=== PATIENT | male | born 1965 | race African-American/Black ===

== ENCOUNTER 2017-03-01 12:47 | Emergency (ER) | payer OTHER ==
[~2017-03-01 12:47] MED LIST: AUGMENTIN 875-1 EACH PO; IBUPROFEN800 M1 PO; MOBIC 15MG15 MG PO; NAPROSYN500 M1 PO; TRAMADOL50 MG PO
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
[2017-03-01 13:02] LABS: ABSOLUTE BASOPHIL COUNT 0 /CUMM (0.0-0.2); ABSOLUTE EOSINOPHIL COUNT 0 /CUMM (0.0-0.7); ABSOLUTE GRANULOCYTE CT 6.8 /CUMM (1.4-6.5); ABSOLUTE MONOCYTE COUNT 0.5 /CUMM (0.10-0.60); BASOPHIL % 0.4 % (0.0-2.0); EOSINOPHIL % 0 % (0-5); GRANULOCYTE % 82.3 % (42.2-75.2); HEMATOCRIT 49.4 % (42-52); MEAN CORPUSCULAR HGB 30.3 PG (27.0-31.0); MEAN CORPUSCULAR HGB CONC 32.6 G/DL (33.0-37.0); MEAN CORPUSCULAR VOLUME 93.1 FL (80.0-94.0); MEAN PLATELET VOLUME 8.9 FL (7.4-10.4); PLATELET COUNT 194 /CUMM (130-400); RBC DISTRIBUTION WIDTH 13.3 % (11.5-14.5); RED BLOOD CELL CT 5.31 /CUMM (4.70-6.10); WHITE BLOOD CELL COUNT 8.2 /CUMM (4.8-10.8)
[2017-03-01] MEDS ORDERED: ZOFRAN ODT4 M1 SL (14:39)
[2017-03-01] MEDS ORDERED: PROTONIX40 M3 PO (14:39)
[2017-03-01 14:48] VITALS: BP 124/69
== END 2017-03-01 14:49 ==
LOC: ERH 12:47
PROVIDERS: Emergency Medicine
DX: K29.70 Gastritis, unspecified, without bleeding (principal); F10.10 Alcohol abuse, uncomplicated
CPT/HCPCS: 96361; 96374; 96375; G0480; J1885; J2405; J2550

== ENCOUNTER 2018-04-23 02:36 | Inpatient (IN) | payer OTHER ==
[~2018-04-23] VITALS: Ht 172.7 cm; Wt 67.2 kg
[~2018-04-23 02:36] MED LIST changes: +PROTONIX40 M3 PO; +ZOFRAN ODT4 M1 SL
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
[2018-04-23 18:17] VITALS: BP 153/67
[2018-04-23 18:27] VITALS: BP 153/67
--- NOTE | 2018-04-23 19:05 | Admission Certification ---
Admission Certification Certification Statement - As attending physician, I certify that at the time of - admission, based on clinical presentation, severity of - symptoms, need for further diagnostic testing and - therapeutic interventions, and risk of adverse outcomes - without in-hospital treatment, in my clinical assessment, - this patient requires an acute hospital stay for a minimum - of two nights or longer. I have also considered psychsocial - factors such as support system, advanced age, financial - issues, cognitive issues, and failed out-patient treatments, - past re-admission history, safety of patient, and lack of - compliance as applicable. Specific rationale supporting this admission is: Depression.
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
[2018-04-23 19:57] VITALS: BP 143/92
[2018-04-24] VITALS (8 sets, daily range): BP systolic 152–180; BP diastolic 80–98
--- NOTE | 2018-04-24 11:46 | PN- Att Addend ---
Attending Addendum Attending Brief Note Called by nursing staff on account of elevated blood pressure.Blood pressure was reported to be 180/98. Patient was hypertensive on admission to the inpatient psychiatric unit yesterday. EKG shows left ventricular hypertrophy. This morning he also complained of palpitations for which another EKG was repeated. Normal sinus rhythm with no ischemic changes noted. Patient seen and examined. Resting comfortably. he complained of some nausea earlier this morning. He reports he was given pancakes and boone for breakfast after this and proceeded to vomit. Symptoms has resolved since then. Denies any nausea currently. Denies any abdominal pain. Denies any diarrhea. Denies similar episodes in the past. On examination resting comfortably not in acute distress. Abdomen is flat soft and nontender with normal bowel sounds. Problems: 1. Hypertension; likely long-standing given LVH on EKG. 2. Nausea and vomiting; resolved. Plan: -Begin patient on lisinopril 20 mg orally daily. -Place patient on 2 g sodium diet. Recommend dietary counseling prior to discharge. -Patient to follow-up with his primary care provider upon discharge for continued management of his hypertension. -Currently denies any gastrointestinal complaints. Continue to monitor.
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
[2018-04-25] VITALS (9 sets, daily range): BP systolic 143–180; BP diastolic 92–98
--- NOTE | 2018-04-25 12:34 | CP SOUTH PROGRESS NOTE PSYCH ---
Psych (Inpt) Progress Note Progress Note Include the following elements, when applicable: Involvement in the active treatment of the patient with behavioral observations of the patient and the patient's response to the treatment. Review of the ongoing treatment process in the context of the treatment plan. Indication of how multi-disciplinary staff members are carrying out the treatment plan. Plans for future interventions and recommendations for revision of the treatment plan. Liaison with other physicians/providers. Progress Note: Pt notes that still not feeling well. +passing gas and having BMs. Decreased N/V over the last 24hrs. Feels poor appetite and depression overall. Mother of his child is visiting today. She is very supportive and a good friend and he is looking forward to it. Denies SI or HI. Current Medications Sig/Mary Start time Last Medication Dose Route Stop Time Status Admin Citalopram 10 MG AT BEDTIME 04/23 2100 AC 04/24 Hydrobromide PO 2259 Folic Acid 1 MG DAILY 04/24 1330 AC 04/25 PO 04/26 0901 0824 Gabapentin 200 MG Q2 HRS NEEDED PRN 04/23 1730 AC PO Ibuprofen 400 MG Q6P PRN 04/23 2000 AC 04/24 PO 0606 Lisinopril 20 MG DAILY 04/24 0904 AC 04/25 PO 0825 Lorazepam 2 MG Q2P PRN 04/24 1330 AC PO Lorazepam 1 MG Q2P PRN 04/24 1330 AC 04/24 PO 2009 Multivitamins 1 TAB DAILY 04/24 1330 AC 04/25 PO 0825 Omeprazole 40 MG DAILY AC 04/24 1323 AC 04/25 PO 0621 Ondansetron HCl 4 MG Q6P PRN 04/24 1230 AC 04/24 PO 1225 Thiamine HCl 100 MG DAILY 04/24 1330 AC 04/25 PO 04/26 0901 0825 Trazodone HCl 50 MG AT BEDTIME NEED.. 04/23 1730 AC 04/25 PO 0324 Laboratory Tests 04/23 04/23 0420 0334 Chemistry Sodium (137 - 145 mmol/L) 137 Potassium (3.5 - 5.1 mmol/L) 4.2 Chloride (98 - 107 mmol/L) 96 L Carbon Dioxide (22 - 30 mmol/L) 29 Anion Gap (5 - 16) 12 BUN (9 - 20 mg/dL) 11 Creatinine (0.7 - 1.2 mg/dL) 0.9 Estimated GFR (>60 ml/min) > 60 BUN/Creatinine Ratio (7 - 25 %) 12.2 Glucose (65 - 99 mg/dL) 111 H Calcium (8.4 - 10.2 mg/dL) 9.3 Total Bilirubin (0.2 - 1.3 mg/dL) 0.4 AST (17 - 59 U/L) 35 ALT (21 - 72 U/L) 41 Alkaline Phosphatase (< 127 U/L) 121 Troponin I (<0.11 ng/ml) < 0.01 Total Protein (6.3 - 8.2 g/dL) 7.8 Albumin (3.5 - 5.0 g/dL) 3.9 Globulin (1.9 - 4.2 gm/dL) 3.9 Albumin/Globulin Ratio (1.1 - 2.2 %) 1.0 L TSH &T3 &Free T4 Intrp (0.27 - 4.20 uIU/mL) 0.952 Toxicology Urine Opiates Screen (>2000 NG/ML) 769.00 Methadone Screen (>300 NG/ML) < 40 Barbiturate Screen (>200 NG/ML) < 60 Ur Phencyclidine Scrn (>25 NG/ML) < 6.00 Amphetamines Screen (>1000 NG/ML) < 100 U Benzodiazepines Scrn (>200 NG/ML) < 85 Urine Cocaine Screen (>300 NG/ML) 401 H Urine Cannabis Screen (>50 NG/ML) > 80.00 H Serum Alcohol (<10 MG/DL) < 10.0 Urines Urine Color (YEL,AMB,STR) YEL Urine Clarity (CLEAR) CLEAR Urine pH (5.0 - 8.0) 6.5 Ur Specific Alder (1.001 - 1.035) 1.020 Urine Protein (NEG,<30 MG/DL) 100 H Urine Ketones (NEG) NEG Urine Nitrite (NEG) NEG Urine Bilirubin (NEG) NEG Urine Urobilinogen (0.1 - 1.0 EU/dl) 0.2 Ur Leukocyte Esterase (NEG) NEG Ur Microscopic SEDIMENT EXAMINED Urine WBC (0 - 2 /HPF) RARE Urine Bacteria (NEG/NONE) RARE H Urine Hemoglobin (NEG) NEG Urine Glucose (N MG/DL) NEG Vital Signs Date Time Temp Pulse Resp B/P B/P Pulse O2 O2 Flow FiO2 Mean Ox Delivery Rate 04/25 1228 88 148/92 04/25 1219 88 148/92 04/25 0825 96 164/98 04/25 0757 96.7 96 164/98 04/25 0756 98.8 96 164/98 04/24 2254 93 16 152/97 04/24 2032 97.0 84 172/80 04/24 2025 97.0 84 172/80 04/24 1616 60 160/88 04/24 1613 60 160/88 MSE General appearance: good hygiene and grooming; Attitude: cooperative; Eye contact: appropriate; Movement: no psychomotor agitation or slowing; Speech: nl fluency, nl rate/rhythm, nl volume, nl prosody; Mood: "not good" Affect: irritable, flat, appropriate, constricted, non-labile, congruent; Thought process: linear and goal-directed; Thought content: denied SI or HI, no paranoid ideation; Perception: denied hallucinations- auditory, visual, does not appear to be responding to internal stimuli; I/J: limited -Continue current medication regimen except add mirtazapine -Encourage integration into the milieu
[2018-04-26] VITALS (8 sets, daily range): BP systolic 143–159; BP diastolic 74–99
--- NOTE | 2018-04-26 04:59 | Event Note ---
Event Note Event Note: This patient's BP was elevated (140-150's, then at 180/92) despite being on lisinopril 20 mg. I have increased lisinopril to 30 mg today. BP needs to be monitored. CIWA's are low. He needs outpatient follow up with PCP with regards to management of hypertension.
[2018-04-26 08:10] LABS: ABSOLUTE BASOPHIL COUNT 0 /CUMM (0.0-0.2); ABSOLUTE EOSINOPHIL COUNT 0 /CUMM (0.0-0.7); ABSOLUTE GRANULOCYTE CT 6.8 /CUMM (1.4-6.5); ABSOLUTE LYMPH COUNT 2.2 /CUMM (1.2-3.4); ABSOLUTE MONOCYTE COUNT 0.9 /CUMM (0.10-0.60); BASOPHIL % 0.3 % (0.0-2.0); EOSINOPHIL % 0.4 % (0-5); GRANULOCYTE % 67.9 % (42.2-75.2); HEMATOCRIT 49.5 % (42-52); MEAN CORPUSCULAR HGB 30.9 PG (27.0-31.0); MEAN CORPUSCULAR HGB CONC 33.3 G/DL (33.0-37.0); MEAN CORPUSCULAR VOLUME 92.8 FL (80.0-94.0); MEAN PLATELET VOLUME 9.8 FL (7.4-10.4); PLATELET COUNT 240 /CUMM (130-400); RBC DISTRIBUTION WIDTH 13.5 % (11.5-14.5); RED BLOOD CELL CT 5.34 /CUMM (4.70-6.10)
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
--- NOTE | 2018-04-26 17:37 | SOCIAL WORKER PROG NOTE PSYCH ---
Social Work Progress Note Progress Note [facility] concurrent review entered: Member Name Member ID Member Subscriber Name Subscriber ID NIKKI FULLER [id number] 1965 NIKKI FULLER [id number] Pended Authorization # Client Authorization # Type of Request [id number] CONCURRENT Date of Admission/ Start of Services Requested From Submission Date 04/23/2018 04/26/2018 04/26/2018 Level of Service Type of Service Level of Care Type of Care INPATIENT/OC Mental Health Inpatient Inpatient Hospital - Inpatient [facility]
--- NOTE | 2018-04-26 18:10 | SOCIAL WORKER PROG NOTE PSYCH ---
Social Work Progress Note Progress Note This insurance writer met with patient. He reported that his increased depression and SI led to current admission. Patient reported that he has been experiencing decreased energy (for the past three months), decreased appetite, difficulty sleeping and SI (with thoughts to hang himself or OD on Heroin) and not wanting to go to work. He denied HI/AH/VH. He reported past VH of seeing the devil when under the influence of Crack. Patient reported Crack use between ages [age]. Patient stated that he has been drinking alcohol, 5-6 shots on the weekends. He denied any consequences and was unable to identify how long he has had this pattern of use. He reported alcohol use beginning at age 13. Patient reported daily MJ use and has not intention of abstaining from the MJ use. Patient stated that he has been in treatment at [facility] and [facility] in the past, but states that he is not allowed to return. He was unable to identify why this is so, and refused to sign an HERMANN for either program. He was unable to identify any other providers in the past and stated that he was not in treatment prior to [facility] admission. Patient was agreeable to a family meeting with his sister, with whom he lives. He denied any current legal or DCF involvement.
--- NOTE | 2018-04-26 18:27 | SOCIAL WORKER PROG NOTE PSYCH ---
Social Work Progress Note Progress Note Patient spoke with [facility] [employer] today to activate/apply for [employer] insurance. [phone] Application ID: [id number] This information was provided to Meredith with the Business office (ext. [phone])
[2018-04-27 08:14] VITALS: BP 153/90
[2018-04-27 08:15] VITALS: BP 153/90
[2018-04-27 12:36] VITALS: BP 150/94
[2018-04-27 16:39] VITALS: BP 122/65
--- NOTE | 2018-04-27 16:47 | CP SOUTH PROGRESS NOTE PSYCH ---
Psych (Inpt) Progress Note Progress Note Include the following elements, when applicable: Involvement in the active treatment of the patient with behavioral observations of the patient and the patient's response to the treatment. Review of the ongoing treatment process in the context of the treatment plan. Indication of how multi-disciplinary staff members are carrying out the treatment plan. Plans for future interventions and recommendations for revision of the treatment plan. Liaison with other physicians/providers. Progress Note: Case and treatment plan discussed in team meeting. Staff reports that the patient is denying suicidal ideation. Had an elevated pulse of 108 and received Ativan. Wants to go back to work. Does not want to go to AA meeting. Blood pressure was elevated at 150/93. No recurrence of vomiting. Patient seen at 11:38 AM with medical student. Patient was asleep in bed but got up and met with us in office. Feels okay but reports he still feels tired. Reports he slept poorly last night. I advised him to avoid daytime napping to work on his sleep cycle reversal. Affect is calm, flat with low energy. Reports appetite is improving. Denies vomiting. Reports mood is good but rates sad mood 10/10, indicating that he feels ready to cry in a few minutes. Rates anxiety 7/10. Feels hopeless, helpless and worthless. Denies feeling guilty. Denies active suicidal ideation. Reports passive suicidal ideation. Gives a safety promise for here. Denies homicidal ideation. Denies auditory and visual hallucinations and paranoid ideation. Reports he wants to feel better and get back to work. I informed the patient we will now switch SSRI from Celexa to Lexapro (Lexapro may have fewer side-effects) and we will now discontinue Remeron (which can cause sedation). IMPRESSION: Slow progress. Continue present treatment plan. Family meeting is scheduled with sister for tomorrow at 10:30 AM. Anticipate likely discharge later this week to [facility], as the patient refuses recommendation for an IOP.
--- NOTE | 2018-04-27 18:26 | SOCIAL WORKER PROG NOTE PSYCH ---
Social Work Progress Note Progress Note This account underwriter met with patient. He reported feeling depressed. He denied SI/HI/ AH/VH. Patient maintained that he did not want to go to [facility] and wanted to return to work. He also stated that he is not willing to go to [facility] or [facility]. This account underwriter and patient discussed the importance of continuing with treatment after discharge, and patient was agreeable to medication management and possibly an outpatient group. He insisted on a referral to OPS as it is close to work. Patient appeared to minimize his substance use, precontemplative. He was agreeable to a family meeting with his sister, Teri. She was contacted by phone ([phone]) and a meeting is scheduled for tomorrow, 04/28/18, at 10: 30am. Patient also requested a referral to [facility] for a primary care provider.
[2018-04-27 20:11] VITALS: BP 148/76
[2018-04-28 08:30] VITALS: BP 133/91
--- NOTE | 2018-04-28 10:39 | CP SOUTH PROGRESS NOTE PSYCH ---
Psych (Inpt) Progress Note Progress Note Include the following elements, when applicable: Involvement in the active treatment of the patient with behavioral observations of the patient and the patient's response to the treatment. Review of the ongoing treatment process in the context of the treatment plan. Indication of how multi-disciplinary staff members are carrying out the treatment plan. Plans for future interventions and recommendations for revision of the treatment plan. Liaison with other physicians/providers. Progress Note: Case and treatment plan discussed in team meeting. Staff reports that the patient is denying suicidal ideation. Laying low. Eating a lot. Not social. Slept well. Patient seen at 10:06 AM. He was asleep in his room but got up and met with me in office. Reports he is drowsy because he took some medication. Reports he slept well last night. Affect is calm and flat. Mood is down/depressed at 10/ 10. Rates anxiety 10/10. Feels hopeless, helpless and worthless. Denies feeling guilty. Denies active and passive suicidal ideation. Denies homicidal ideation. Denies auditory and visual hallucinations and paranoid ideation. Reports eating well. Energy is low. Patient reports having a chronic pinched nerve in his back that is not causing pain but feels like a bubble. I advised him to follow-up with a PCP after discharge. Family meeting is scheduled with sister for 10:30 AM. IMPRESSION: Slow progress. Continue present treatment. Anticipate likely discharge tomorrow to home and sister with referral for outpatient treatment at [facility].
[2018-04-28 12:14] VITALS: BP 140/83
[2018-04-28 15:57] VITALS: BP 136/78
--- NOTE | 2018-04-28 17:48 | SOCIAL WORKER PROG NOTE PSYCH ---
Social Work Progress Note Progress Note Dr. Melo and this financial underwriter met with the patient and his sister for a family meeting at 10:30am. Patient's sister, Teri, stated that the patient had not been demonstrating any change in mood, however, looking back, she acknowledges that there was some uncharacteristic isolation. Teri was not aware of the longstanding SI, however, reported that the mother of the patient's children had commented on patient reporting SI. Patient's sister stated that the patient's current presentation is typical - at baseline. She stated that the patient will be living with her upon discharge. Discharge plans were discussed, including treatment options - OPS or IOP. Dr. Melo, this financial underwriter and Teri encouraged the patient to go to IOP. He was agreeable to meeting with Sonali Clifton LPC to discuss IOP. Dr. Melo addressed medication questions and concerns. Patient denied SI/HI/AH/VH. He reported better sleep and improved mood. He stated that he does not have access to weapons or have any weapons in the home ( this was confirmed by Teri). Patient identified a safety plan to use when he discharges in which he would contact his sister. They were also informed that he would be provided with crisis numbers and warm line numbers. Patient accepted the following appointments: -Dr. Campo, [facility], 05/12/18 at 1:15pm - OPS: intake and med eval, 05/04/18 at 12:45pm with Dr. Zamora (the OPS appointment will be cancelled if patient chooses to go to IOP after meeting with Cely Clifton) Cely Clifton LPC contacted me after meeting with patient. She stated that he has no intention to stop using MJ. Patient is not appropriate for IOP and will keep the OPS appointment. Cely Clifton LPC recommended the outpatient substance abuse group.
[2018-04-28 19:34] VITALS: BP 155/87
[2018-04-29 07:41] VITALS: BP 160/89
[2018-04-29 09:17] VITALS: BP 160/89
[2018-04-29] MEDS ORDERED: OMEPRAZOLE40 M1 PO (11:55)
[2018-04-29] MEDS ORDERED: ONE DAILY MULT1 EAC2 PO (11:55)
[2018-04-29] MEDS ORDERED: LISINOPRIL30 M1 PO (11:55)
[2018-04-29] MEDS ORDERED: LEXAPRO10 M1 PO (11:55)
[2018-04-29] MEDS ORDERED: NICORETTE2 M2 PO (11:57)
--- NOTE | 2018-04-29 12:09 | Patient Discharge Instructions ---
Psych Discharge Inst General Discharge Information Reason for Admission: Worsening depression. Low energy/motivation. Stomach problems. Psy Discharge Primary Diag+ Major depression, single, severe Psy Discharge Secondary Diag+ Cocaine use disorder Cannabis use disorder Alcohol use disorder Hypertension Nausea/vomiting Summary Tests/Major Procedures Lab ALT 50 U/L 04/26/18 0905 AST 29 U/L 04/26/18 0905 Albumin/Globulin Ratio 1.0 % L 04/23/18 0334 Amylase 87 U/L 04/26/18 0905 BUN 11 mg/dL 04/23/18 0334 Calcium 9.3 mg/dL 04/23/18 0334 Carbon Dioxide 29 mmol/L 04/23/18 0334 Chloride 96 mmol/L L 04/23/18 0334 Cholesterol 153 MG/DL 04/26/18 0905 Cholesterol/HDL Ratio 1 % 04/26/18 0905 Creatinine 0.9 mg/dL 04/23/18 0334 Estimated GFR > 60 ml/min 04/23/18 0334 Ferritin 448.0 ng/mL 04/26/18 0905 Glucose 111 mg/dL H 04/23/18 0334 HDL Cholesterol 103 mg/dL H 04/26/18 0905 Hemoglobin A1c 5.5 % 04/26/18 0640 Iron 120 ug/dL 04/26/18 0905 LDL Cholesterol, Calc 35 mg/dL L 04/26/18 0905 Lipase 176 U/L 04/26/18 0905 Magnesium 1.8 mg/dL 04/26/18 0905 Potassium 4.2 mmol/L 04/23/18 0334 Sodium 137 mmol/L 04/23/18 0334 TIBC 338 ug/dL 04/26/18 0905 TSH &T3 &Free T4 Intrp 0.952 uIU/mL 04/23/18 0334 Triglycerides 78 mg/dL 04/26/18 0905 Vitamin B12 > 1000 pg/mL H 04/26/18 0905 Absolute Granulocytes 6.8 /CUMM H 04/26/18 0640 Absolute Monocytes 0.9 /CUMM H 04/26/18 0640 Hct 49.5 % 04/26/18 0640 Hgb 16.5 G/DL 04/26/18 0640 Plt Count 240 /CUMM 04/26/18 0640 WBC 10.0 /CUMM 04/26/18 0640 Hep B Core IgM Ab Conf NONREACTIVE 04/26/18 0905 Hep Bs Antigen NONREACTIVE 04/26/18 0905 Hepatitis A IgM Ab NONREACTIVE 04/26/18 0905 Hepatitis C Antibody NONREACTIVE 04/26/18 0905 Serum Alcohol < 10.0 MG/DL 04/23/18 0334 Urine Cannabis Screen > 80.00 NG/ML H 04/23/18 0420 Urine Cocaine Screen 401 NG/ML H 04/23/18 0420 Urine Opiates Screen 769.00 NG/ML 04/23/18 0420 Ur Epithelial Cells RARE 04/22/18 1601 Urine Bacteria RARE H 04/23/18 0420 Urine Protein 100 MG/DL H 04/23/18 0420 SERVICE DATE: 04/22/18 EXAM TYPE: RAD - XRY-CHEST XRAY, TWO VIEWS EXAMINATION: XR CHEST CLINICAL INFORMATION: Dizziness, dyspnea. COMPARISON: None TECHNIQUE: 2 views of the chest were obtained. FINDINGS: The cardiomediastinal silhouette appears normal. The lungs appear clear. No consolidation, pulmonary edema, pleural effusion, or pneumothorax. Several irregular small radiodensities project over the right upper hemithorax, and on the lateral view are seen both anteriorly and posteriorly. There are mild multilevel degenerative changes of the spine without acute osseous abnormality. IMPRESSION: No acute abnormality. Small irregular radiodense foreign bodies in the right upper hemithorax. Correlation with history is suggested. EKG 04/24/18 showed sinus rhythm @ 62, consider LVH, no significant change since previous tracing, abnormal EKG, QT 380, QTc 386. Studies Pending at DC: None. Patient Instructions Contact Information Your Psychiatrist on [facility] was Dann Melo MD * If you are experiencing an emergency related to this hospitalization, please call [phone] to contact the treating psychiatrist or the psychiatrist-on- call. * To Request a copy of your medical records, please contact the Medical Records Department at [phone]. * To request results of studies pending at the time of discharge, please call [phone]. * Continue your Medications until directed to stop by your Healthcare provider. General Medication Information Please continue to take your new medications and your continued home medications , unless otherwise indicated on your discharge medication list, or unless directed by your MD or MARKET RESEARCH EXECUTIVE to stop them. Special Instructions Diet Regular Activity Normal Other Inst/Recommendations See PCP about BP, stomach issues,labs.Stay clean and sober. - Tobacco Use Treatment Offered Post DC Medications Offered: Script Given-See Med List Post DC Tobacco Treatment Plan: [facility] Program Appt Date: 05/12/18 Program Appt Time: 1600 - EtOH/Drug Use D/O Treatment Offered Post DC Medications Offered: Med Not Indicated for D/O Post DC EtOH/SubAbuse TX Plan: Other SubAbuse/Dual Pgm ([facility]) Program Appt Date: 05/04/18 Program Appt Time: 1245 Metabolic Screening ([x]) Not Applicable, patient not on a neuroleptic. OR () Patient on a neuroleptic(s) . Enter below results for Hemoglobin A1C, and lipid panel if obtained during the last 365 days. BMI: 22.500 Blood Pressure: 160/89 Laboratory Results From [facility] EHR (If applicable): Advance Directives Does the Patient have Medical Advance Directives No/Refused further info Does Pt have Psychiatric Advance Directives? No/Refused further info Does Patient have a Designated Surrogate Decision Maker: No Information About Psychiatric Advance Directives Provided? Yes Discharge Plan Post Hospital Treatment Plan: Returning to home and sister.
[2018-04-29] MEDS ORDERED: ONDANSETRON ODT4 M1 PO (12:18)
--- NOTE | 2018-04-29 15:57 | CP SOUTH PROGRESS NOTE PSYCH ---
Psych (Inpt) Progress Note Progress Note Include the following elements, when applicable: Involvement in the active treatment of the patient with behavioral observations of the patient and the patient's response to the treatment. Review of the ongoing treatment process in the context of the treatment plan. Indication of how multi-disciplinary staff members are carrying out the treatment plan. Plans for future interventions and recommendations for revision of the treatment plan. Liaison with other physicians/providers. Progress Note: Case and treatment plan discussed in team meeting. Staff reports that the patient has constricted affect. Looking forward to discharge. Looking forward to returning to work. Not interested in stopping marijuana, so he is not a candidate for our IOP. Has an appointment with Dr. Zamora on 05/04/18. Patient seen at 12:10 p.m. was social work associate, Martha. Reports he vomited this morning. Appears physically uncomfortable and states that he has hunger pains. He appears anxious and is rocking in his chair. Reports mood is good. Rates sad mood and anxiety both 0/10. Denies feeling hopeless, helpless, worthless or guilty. Denies active and passive suicidal ideation. Denies homicidal ideation. Denies auditory and visual hallucinations and paranoid ideation. States he did not sleep at all last night because of anxiety about leaving. States he has no appetite. Energy is low. Feels ready and safe for discharge. Refusing IOP recommendation. He is being referred to [facility]PS and to [facility] for primary care. He is also being referred to a gastroenterology appointment. IMPRESSION: Condition improved. Okay for discharge today to home and sister with follow-up as above.
--- NOTE | 2018-04-29 17:23 | SOCIAL WORKER PROG NOTE PSYCH ---
Social Work Progress Note Progress Note Dr. Melo and this caption writer met with the patient. He described his mood as "good " however complained of stomach pain. He stated that his sister will be bringing him to a athletic turf worker after discharging from [facility] today. Patient denied SI/HI/AH/VH and stated that he felt safe leaving the hospital today. Patient expressed some anxiety about wanting to return to work, which affected his ability to sleep last night. As he refused IOP, patient was agreeable to attending the appointment with OPS for medication management and also to discuss outpatient groups. Patient also accepted a primary care appointment with [facility]. (See appointments below) - OPS 05/04/18 at 12:45pm with Dr. Zamora -[facility] Dr. Campo 05/11/18 at 1:15pm (patient and this caption writer contacted Dr. Campo' office to inquire about a sooner appointment. They offered one on 05/10/18, however, patient opted to keep the appt at 1:15pm Patient was provided with an appointment with Dr. Oh (gastroenterology) on at 11:45am. He stated that his sister will be taking him to an appointment with a athletic turf worker this afternoon and did not need the appointment with Dr. Oh, however, accepted the information. Patient did not want to sign an HERMANN for Dr. Oh and did not want any records sent to Dr. Oh from this current admission. Faxed Referral(s) 1 Referred To: Dr. Campo Transition of Care Documents sent: Health Summary Faxed to: Dr. Campo Fax #: [phone] Faxed by: Robb Miller LCSW Date faxed: 04/29/18 Time Faxed: [phone] Faxed Referral(s) 2 Referred To: [facility] Transition of Care Documents sent: Health Summary Faxed to: OPS Fax #: [phone] Faxed by: Robb Miller LCSW Date faxed: 04/29/18 Time Faxed: [phone]
--- NOTE | 2018-04-30 17:13 | DISCHARGE SUMMARY REPORT-PSYCH ---
Visit Information Visit Dates/Diagnosis' Admission Date: 04/23/18 Discharge Date: 04/29/18 Reason for Admission: Worsening depression. Low energy/motivation. Stomach problems. Psy Discharge Primary Diag: Major depression, single, severe Psy Discharge Secondary Diag: Cocaine use disorder Cannabis use disorder Alcohol use disorder Hypertension Nausea/vomiting Hospital Course Significant Lab Findings: Lab ALT 50 U/L 04/26/18 0905 AST 29 U/L 04/26/18 0905 Albumin/Globulin Ratio 1.0 % L 04/23/18 0334 Amylase 87 U/L 04/26/18 0905 BUN 11 mg/dL 04/23/18 0334 Calcium 9.3 mg/dL 04/23/18 0334 Carbon Dioxide 29 mmol/L 04/23/18 0334 Chloride 96 mmol/L L 04/23/18 0334 Cholesterol 153 MG/DL 04/26/18 0905 Cholesterol/HDL Ratio 1 % 04/26/18 0905 Creatinine 0.9 mg/dL 04/23/18 0334 Estimated GFR > 60 ml/min 04/23/18 0334 Ferritin 448.0 ng/mL 04/26/18 0905 Glucose 111 mg/dL H 04/23/18 0334 HDL Cholesterol 103 mg/dL H 04/26/18 0905 Hemoglobin A1c 5.5 % 04/26/18 0640 Iron 120 ug/dL 04/26/18 0905 LDL Cholesterol, Calc 35 mg/dL L 04/26/18 0905 Lipase 176 U/L 04/26/18 0905 Magnesium 1.8 mg/dL 04/26/18 0905 Potassium 4.2 mmol/L 04/23/18 0334 Sodium 137 mmol/L 04/23/18 0334 TIBC 338 ug/dL 04/26/18 0905 TSH &T3 &Free T4 Intrp 0.952 uIU/mL 04/23/18 0334 Triglycerides 78 mg/dL 04/26/18 0905 Vitamin B12 > 1000 pg/mL H 04/26/18 0905 Absolute Granulocytes 6.8 /CUMM H 04/26/18 0640 Absolute Monocytes 0.9 /CUMM H 04/26/18 0640 Hct 49.5 % 04/26/18 0640 Hgb 16.5 G/DL 04/26/18 0640 Plt Count 240 /CUMM 04/26/18 0640 WBC 10.0 /CUMM 04/26/18 0640 Hep B Core IgM Ab Conf NONREACTIVE 04/26/18 0905 Hep Bs Antigen NONREACTIVE 04/26/18 0905 Hepatitis A IgM Ab NONREACTIVE 04/26/18 0905 Hepatitis C Antibody NONREACTIVE 04/26/18 0905 Serum Alcohol < 10.0 MG/DL 04/23/18 0334 Urine Cannabis Screen > 80.00 NG/ML H 04/23/18 0420 Urine Cocaine Screen 401 NG/ML H 04/23/18 0420 Urine Opiates Screen 769.00 NG/ML 04/23/18 0420 Ur Epithelial Cells RARE 04/22/18 1601 Urine Bacteria RARE H 04/23/18 0420 Urine Protein 100 MG/DL H 04/23/18 0420 SERVICE DATE: 04/22/18 EXAM TYPE: RAD - XRY-CHEST XRAY, TWO VIEWS EXAMINATION: XR CHEST CLINICAL INFORMATION: Dizziness, dyspnea. COMPARISON: None TECHNIQUE: 2 views of the chest were obtained. FINDINGS: The cardiomediastinal silhouette appears normal. The lungs appear clear. No consolidation, pulmonary edema, pleural effusion, or pneumothorax. Several irregular small radiodensities project over the right upper hemithorax, and on the lateral view are seen both anteriorly and posteriorly. There are mild multilevel degenerative changes of the spine without acute osseous abnormality. IMPRESSION: No acute abnormality. Small irregular radiodense foreign bodies in the right upper hemithorax. Correlation with history is suggested. EKG 04/24/18 showed sinus rhythm @ 62, consider LVH, no significant change since previous tracing, abnormal EKG, QT 380, QTc 386. Course Complications: None. Consultations: The patient was seen by Dr. Francisco Melendez on 04/23/18 for admission H&P. Dr. Melendez noted on 04/23/18: "Assessment: 52 yo M with h/o polysubstance abuse, current smoker, alcohol use, is admitted to Inpatient Psychiatry for management of depression and suicidal ideation. - Continue management of depression as per Psych team. - Smoking cessation counseling, nicotine patch. - BP remains elevated and EKG shows signs of LVH with early repolarization pattern. We will monitor his BP for now, and if need be will consider adding ACEI if BP remains persistently elevated. Would avoid beta blockers given his current use of cocaine. Troponin was negative on initial eval. - His weight loss seems to be related to loss of appetite, depression. He would need referral to PCP upon discharge and age-appropriate screening with colonoscopy. DVT ppx low risk, early ambulation." Dr. Barboza saw the patient on 04/24/18 and noted:Problems: 1. Hypertension; likely long-standing given LVH on EKG. 2. Nausea and vomiting; resolved. Plan: -Begin patient on lisinopril 20 mg orally daily. -Place patient on 2 g sodium diet. Recommend dietary counseling prior to discharge. -Patient to follow-up with his primary care provider upon discharge for continued management of his hypertension. -Currently denies any gastrointestinal complaints. Continue to monitor." Dr. Melendez saw the patient on 04/26/18 and noted: "This patient's BP was elevated (140-150's, then at 180/92) despite being on lisinopril 20 mg. I have increased lisinopril to 30 mg today. BP needs to be monitored. CIWA's are low. He needs outpatient follow up with PCP with regards to management of hypertension." Allergies: Coded Allergies: No Known Allergies (04/23/18) Hospital Course/TX Response: The patient was monitored on the unit for safety and mood disorder. He participated in multi-modal treatments on the unit. He intermittently complained of low energy, poor sleep and abdominal discomfort. He was treated with Lexapro for depression. Mood and affect have improved modestly. Suicidal ideation has remitted. Physical discomfort persists and the patient should follow up with PCP and dam operator. Progress note from date of discharge, 04/29/18: "Case and treatment plan discussed in team meeting. Staff reports that the patient has constricted affect. Looking forward to discharge. Looking forward to returning to work. Not interested in stopping marijuana, so he is not a candidate for our IOP. Has an appointment with Dr. Zamora on 05/04/18. Patient seen at 12:10 p.m. was social service technicianMartha. Reports he vomited this morning. Appears physically uncomfortable and states that he has hunger pains. He appears anxious and is rocking in his chair. Reports mood is good. Rates sad mood and anxiety both 0/10. Denies feeling hopeless, helpless, worthless or guilty. Denies active and passive suicidal ideation. Denies homicidal ideation. Denies auditory and visual hallucinations and paranoid ideation. States he did not sleep at all last night because of anxiety about leaving. States he has no appetite. Energy is low. Feels ready and safe for discharge. Refusing IOP recommendation. He is being referred to [facility]PS and to [facility] for primary care. He is also being referred to a gastroenterology appointment. IMPRESSION: Condition improved. Okay for discharge today to home and sister with follow-up as above." Discharge HBIPS - Tobacco Use Treatment Offered Post DC Medications Offered: Script Given-See Med List Post DC Tobacco Treatment Plan: [facility] Program Appt Date: 05/12/18 Program Appt Time: 1600 - EtOH/Drug Use D/O Treatment Offered Post DC Medications Offered: Med Not Indicated for D/O Post DC EtOH/SubAbuse TX Plan: [facility] SubAbuse/Dual IOP ([facility] Dr. Zamora) Program Appt Date: 05/04/18 Program Appt Time: 1245 Metabolic Screening - Screen if on a Neuroleptic Medication - Metabolic screening should include: - Blood Pressure, BMI, Glucose or Hgb A1c, & a - Lipid profile from within the past 365 days. Metabolic Screening ([x]) Not Applicable, patient not on a neuroleptic. OR () Patient on a neuroleptic(s) . Enter below results for Hemoglobin A1C, and lipid panel if obtained during the last 365 days. BMI: 22.500 Blood Pressure: 160/89 Laboratory Results From [facility] EHR (If applicable): Discharge Instructions General Discharge Information Multiple Neuroleptics: ([x]) Not Applicable OR Document below three failed attempts at monotherapy, or a plan to taper to monotherapy, or augmentation of Clozapine. () Discharge Diet Regular Discharge Activity Normal DC Disposition: Returning to home and sister. Referrals Ordered Referrals Outpatient Psych - Substance 05/04/18 [address] [place], [place] [id number] [facility] [address], [place] [phone] 05/04/18, at 12:45pm with Dr. Zamora Provider Referral 05/11/18 For Groups: [facility] Multiple Locations Dr. Jahaira Leger Faculty Physician [address] [place], [place] [phone] Appointment: Friday, May 11, 2018, at 1:15pm OUTPATIENT PSYCH - SUBSTANCE 05/12/18 [address] [facility] [place] [address] Smoking Cessation Group [address], [place] [phone] Group meets every other Thursday at 4pm Next group: 05/12/18, at 4pm Prescriptions Start taking the following new medications: Escitalopram Oxalate (Lexapro) 10 MG TABLET 10 Tablet ORAL DAILY @8 AM Qty = 14 No Refills Comments: Last Taken:04/29/18 Time:0917 Multivitamin (One Daily Multivitamin) 1 EACH TABLET 1 Tablet ORAL DAILY Qty = 14 No Refills Comments: Last Taken:04/29/18 Time:0917 Ondansetron (Ondansetron Odt) 4 MG TAB.RAPDIS 1 Tablet ORAL EVERY SIX HOURS NEEDED as needed for NAUSEA/VOMITING Qty = 28 No Refills Comments: Last Taken:04/29/18 Time:0605 Lisinopril (Lisinopril) 30 MG TABLET 1 Tablet ORAL DAILY Qty = 14 No Refills Comments: Last Taken:04/29/18 Time:0917 Omeprazole (Omeprazole) 40 MG CAPSULE.DR 1 Capsule ORAL DAILY Qty = 14 No Refills Comments: Last Taken:04/29/18 Time:0803 Nicotine Polacrilex (Nicorette) 2 MG GUM 1 Gum ORAL Q2H as needed for nicotine craving Qty = 100 No Refills Comments: Last Taken:04/29/18 Time:NOT TAKEN IN HOSPITAL Other Inst/Recommendations See PCP about BP, stomach issues,labs.Stay clean and sober. Studies Pending at Discharge None. Copies To: Jahaira POLANCO,Ulices Wallace; Ari POLANCO,Martha
== END 2018-04-29 13:15 | DRG 754 ==
LOC: ERH 02:36 → CP SOUTH 15:47 → ERHI 15:47 → ENTRNSPT 17:56 → EDTRNSPTSTS 18:06 → EDTRNSPT 18:06 → CP SOUTH 18:17 → CMPTRNSPT 19:01 → ENRESERV 23:59 → CP SOUTH 04-26 10:40
PROVIDERS: Psychiatry & Neurology Psychiatry; Student in an Organized Health Care Education/Training Program
DX: F32.9 Major depressive disorder, single episode, unspecified (principal); F14.90 Cocaine use, unspecified, uncomplicated; F10.10 Alcohol abuse, uncomplicated; F12.90 Cannabis use, unspecified, uncomplicated; I10 Essential (primary) hypertension; R11.2 Nausea with vomiting, unspecified
CPT/HCPCS: 36415; 80307; 81001; 93005; 93010; 96374; 96375; G0480; J2765; J3101; J3490

== ENCOUNTER 2018-07-10 23:10 | Emergency (ER) | payer OTHER ==
[~2018-07-10] VITALS: Ht 177.8 cm; Wt 99.8 kg
[~2018-07-10 23:10] MED LIST changes: +LEXAPRO10 M1 PO; +LISINOPRIL30 M1 PO; +NICORETTE2 M2 PO; +OMEPRAZOLE40 M1 PO; +ONDANSETRON ODT4 M1 PO; +ONE DAILY MULT1 EAC2 PO
[2018-07-11 00:12] LABS: ABSOLUTE BASOPHIL COUNT 0 /CUMM (0.0-0.2); ABSOLUTE EOSINOPHIL COUNT 0.2 /CUMM (0.0-0.7); ABSOLUTE GRANULOCYTE CT 7.7 /CUMM (1.4-6.5); ABSOLUTE LYMPH COUNT 2.1 /CUMM (1.2-3.4); ABSOLUTE MONOCYTE COUNT 0.7 /CUMM (0.10-0.60); BASOPHIL % 0.1 % (0.0-2.0); EOSINOPHIL % 1.6 % (0-5); GRANULOCYTE % 72.7 % (42.2-75.2); MEAN CORPUSCULAR HGB 31.2 PG (27.0-31.0); MEAN CORPUSCULAR HGB CONC 33.7 G/DL (33.0-37.0); MEAN CORPUSCULAR VOLUME 92.7 FL (80.0-94.0); MEAN PLATELET VOLUME 8.1 FL (7.4-10.4); PLATELET COUNT 247 /CUMM (130-400); RBC DISTRIBUTION WIDTH 13.3 % (11.5-14.5); RED BLOOD CELL CT 4.75 /CUMM (4.70-6.10); WHITE BLOOD CELL COUNT 10.6 /CUMM (4.8-10.8)
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
[2018-07-11 02:51] VITALS: BP 146/80
== END 2018-07-11 02:53 ==
LOC: ERH 23:10
PROVIDERS: Emergency Medicine
DX: F16.10 Hallucinogen abuse, uncomplicated (principal); F12.10 Cannabis abuse, uncomplicated
CPT/HCPCS: 80307; G0480

== ENCOUNTER 2018-08-14 01:48 | Emergency (ER) | payer OTHER ==
[~2018-08-14] VITALS: Ht 170.2 cm; Wt 68.0 kg
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
--- NOTE | 2018-08-14 03:10 | CT SCAN REPORT ---
EXAMINATION: CT HEAD WITHOUT CONTRAST CT CERVICAL SPINE WITHOUT CONTRAST CT FACE WITHOUT CONTRAST CLINICAL INFORMATION: Trauma. COMPARISON: None TECHNIQUE: Multidetector CT imaging of the head, face, and cervical spine was performed without the use of intravenous contrast. FINDINGS: CT head: There is no evidence of acute intracranial hemorrhage, midline shift, mass effect, or extra-axial fluid collection. No evidence of hydrocephalus. Basal cisterns are patent. The calvarium is intact. Mastoid air cells are clear. CT face: Please note the mandible is partially excluded from the [id number]. There is no evidence of acute fracture or traumatic dislocation. Remote appearing nasal bone deformity is seen. The temporomandibular joints are intact. Numerous periapical lucencies and dental caries are seen involving the maxillary teeth. There is associated mild mucosal thickening involving the maxillary sinuses and ethmoid sinuses. The globes and retrobulbar structures are unremarkable. Right facial soft tissue swelling is seen. CT cervical spine Cervical vertebral bodies are within normal limits for height and sagittal alignment. There is apparent mild rotatory subluxation of C1 on C2, though possibly positional in etiology. No evidence of acute fracture. Regional soft tissues are within normal limits. Os acromiale is noted on the right. Lung apices are clear. IMPRESSION: No evidence of acute intracranial hemorrhage or mass effect. Right facial soft tissue hematoma without evidence of facial fracture. However, please note the anterior aspect of the mandible is excluded from the [id number]. Apparent mild rotatory subluxation of C1 on C2, though possibly positional in etiology. Clinical correlation is recommended. No acute cervical spine fracture.
[2018-08-14 08:45] VITALS: BP 164/88
== END 2018-08-14 08:47 ==
LOC: ERH 01:48
DX: S09.93XA Unspecified injury of face, initial encounter (principal); S00.81XA Abrasion of other part of head, initial encounter; F10.10 Alcohol abuse, uncomplicated; X58.XXXA Exposure to other specified factors, initial encounter; Y92.410 Unspecified street and highway as the place of occurrence of the external cause; Y93.9 Activity, unspecified; F32.9 Major depressive disorder, single episode, unspecified
CPT/HCPCS: 80307; 90471; 90714; G0480